=== PATIENT | male | born 1990 | race Two or more races ===

== ENCOUNTER 2023-03-24 13:58 | Outpatient (AMB) | payer OTHER, SELFPAY ==
--- NOTE | 2023-03-24 14:21 | MHC.PC.OV ---
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 Will order labs. Pt c/o right shoulder pain. He is already going to PT for this and needs a referral, will place. [facility] Medical History Kidney stones Lymphoma Social History Housing: House Patient Tobacco Use Status: Former Tobacco user e-Cigarette/Vaping Use: Never Used service: No Current occupational status: employed Cognitive needs: No Hearing needs: No Vision needs: Yes Questionnaire PHQ-9 Over the last 2 weeks, how often have you been bothered by any of the following problems? 1. Little interest or pleasure in doing things: not at all 2. Feeling down, depressed, or hopeless: not at all 3. Trouble falling or staying asleep, or sleeping too much: not at all 4. Feeling tired or having little energy: not at all 5. Poor appetite or overeating: not at all 6. Feeling bad about yourself - or that you are a failure or have let yourself or your family down: not at all 7. Trouble concentrating on things, such as reading the newspaper or watching television: not at all 8. Moving or speaking so slowly that other people could have noticed. Or the opposite - being so fidgety or restless that you have been moving around a lot more than usual: not at all 9. Thoughts that you would be better off or of hurting yourself in some way: not at all Total score: 0 Depression Screening Interpretation: Negative Depression Screening Done: Yes 87217 - PHQ-9 Billing: Yes Source: Developed by Drs. Tony Dave, Chicho Rosas and colleagues, with an educational annie from [employer]. Thrive Questionnaire Date Thrive assessed: 03/24/23 I am a: Patient What is your living situation today?: I have a steady place to live Within the past 12 months, did the food you bought not last and you didn't have the money to get more?: Never true Within the past 12 months, did you worry whether your food would run out before you got money to buy more?: Never true Do you have trouble paying for medicines?: No Do you have trouble getting transportation to medical appointments?: No Do you have trouble paying your heating and electricity bill?: No Do you have trouble taking care of your child, family member or friend?: No Do you have trouble with day-to-day activities such as bathing, preparing meals, shopping, managing finances, etc.?: No Are you currently unemployed and looking for a job?: No Are you interested in more education?: No AUDIT C Alcohol Use Questionnaire (AUDIT-C) 1. How often do you have a drink containing alcohol?: Never 3. How often do you have six or more drinks on one occasion?: Never Total Score: 0 Score Reviewed/Action Taken: No SARAH-7 AMB Questionnaire SARAH-7 Date SARAH - 7 assessed: 03/24/23 Feeling nervous, anxious, or on edge: 0 = Not at all Not being able to stop or control worryin = Not at all Worrying too much about different things: 0 = Not at all Trouble relaxin = Not at all Being so restless that it is hard to sit still: 0 = Not at all Becoming easily annoyed or irritable: 0 = Not at all Feeling afraid as if something awful might happen: 0 = Not at all Total SARAH-7 score (0-4 normal; 5-9 mild; 10-14 moderate; 15-21 severe): 0 Source: Developed by Rena Mary Kurt Kroenke and colleagues, with an educational annie from [employer]. SARAH-7 Assessment Billing SARAH-7 Assessment Tool: SARAH-7 Assessment 78214 Review of Systems Const Denies chills and Denies fever(s) Eyes Denies blurry vision ENT Denies vertigo, Denies dizziness and Denies sore throat Card Denies chest pain at rest, Denies chest pain with activity, Denies diaphoresis, Denies dyspnea and Denies dyspnea on exertion Resp Denies cough, Denies dyspnea, Denies dyspnea on exertion and Denies wheezing GI Denies abdominal pain, Denies melena, Denies hematochezia, Denies constipation, Denies diarrhea and Denies loose stools Denies hematuria Musc Denies numbness and Denies tingling Skin/Breast Denies lesions Neuro Denies vertigo, Denies dizziness, Denies numbness and Denies tingling Psych Denies anxiety, Denies depression, Denies homicidal ideation, Denies suicidal ideation and Denies other (substance abuse) Aller/Immun Denies wheezing Physical exam (Primary Care) Vital Signs: Last Vital Signs Pulse 60 03/24/23 14:22 BP 100/60 03/24/23 14:22 Pulse Ox 95 03/24/23 14:22 Oxygen Delivery Method Room Air 03/24/23 14:22 BMI result Body Mass Index 19.7 Tobacco/Smoking Status: Tobacco use Status Tobacco use date assessed 03/24/23 03/24/23 14:27 Patient Tobacco Use Status Former Tobacco user 03/24/23 14:27 e-Cigarette/Vaping Use Never Used 03/24/23 14:27 PHQ-9: PHQ-9 Score PHQ-9: Total score 0 03/24/23 15:24 Depression Screening Interpretation: Negative Thrive Assessment: Date of Thrive Assessment Date Thrive assessed 03/24/23 03/24/23 15:24 Const General: cooperative Nutritional Appearance: well nourished Orientation/consciousness: patient oriented x3 HENMT Head: Yes normal to inspection, Yes normocephalic and Yes atraumatic Ears: TM's normal bilaterally Eyes General: appearance normal, both eyes and all related structures Alignment and Position: alignment normal and position normal Neck Neck: Yes normal visual inspection and Yes no lymphadenopathy Thyroid: Thyroid normal Resp Effort & Inspection: normal respiratory effort Auscultation: clear to auscultation bilaterally Cardio Rate: regular rate Rhythm: regular rhythm Heart sounds: S1 normal heart sound present, S2 normal heart sound present and no murmurs GI Palpation (GI): Soft to palpation and nontender Auscultation: normal bowel sounds Male General Exam: Yes normal external exam Penis: normal penis Scrotum: scrotum normal, testes descended bilaterally and no inguinal hernias Testes: no testicular mass Skin Rashes: no rashes Neuro General: patient oriented x3, moves all extremities, no focal motor deficits and deep tendon reflexes 2+ bilaterally Romberg Test: Negative Extrem Other: right shoulder: - zaldivar, - neers, - jobes Psych Appearance: grossly normal Mental Status: mental status grossly normal Speech and movement: Normal speech and movement present Affect: normal affect Attitude: cooperative Thought process: Normal thought process present Thought content: Normal thought content present Insight: Good insight present (Psych) Judgement: Good judgement present (Psych) Assessment and Plan Assessment & Plan (1) Physical exam: Code(s): Z00.00 - Encounter for general adult medical examination without abnormal findings Plan: Labs ordered (2) Right shoulder pain: Code(s): M25.511 - Pain in right shoulder Plan: Referred to PT Plan The patient agreed to the use of a medical editor for this encounter. Scribed for SEVERO Esparza- by Nirmala Prado medical editor, on 03/24/2023 at 14:50 EST. Orders: Orders Comprehensive [place]. Panel Fast Today Z00.00 - Encounter for general adult medical examination without abnormal findings Complete Blood Count Auto Diff Today Z00.00 - Encounter for general adult medical examination without abnormal findings TSH reflex Free T4 Today Z00.00 - Encounter for general adult medical examination without abnormal findings UA CC w/rflx Micro + Cult Today Z00.00 - Encounter for general adult medical examination without abnormal findings Lipid Panel Today Z00.00 - Encounter for general adult medical examination without abnormal findings PT Evaluation and Treatment Today M25.511 - Pain in right shoulder Coding Level of Care Code New Pt Prev Care 18-39yr(18741 Diagnoses Physical exam Z00.00 Right shoulder pain M25.511 Additional Codes SARAH-7 Assessment Billing - SARAH-7 Assessment Tool: SARAH-7 Assessment 92234 ([id number])
[2023-03-24 14:22] VITALS: BP 100/60; PULSE 60; O2SAT 95; BMI 19.7
== END 2023-03-24 15:47 | disposition home or self-care (01) ==
PROVIDERS: PCP Nurse Practitioner Family; Visit Provider Nurse Practitioner Family
DX: Z00.00 Encounter for general adult medical examination without abnormal findings (principal); M25.511 Pain in right shoulder
CPT/HCPCS: 99385

== ENCOUNTER 2023-09-20 10:43 | Outpatient (REF) | payer OTHER, SELFPAY ==
[2023-09-20 13:28] LABS: MANUAL DIFF FLAG NO
[2023-09-20 13:34] LABS: Basophils Percent Auto 0.5 % (0-2); Eosinophils Absolute Auto 0.1 X10*3/uL (0.0-0.4); Eosinophils Percent Auto 2.3 % (0-4); Hematocrit 41.1 % (42.0-52.0); Hemoglobin 13.7 g/dl (14.0-18.0); Imm Gran Abs Auto 0.01 X10*3/uL (0.00-0.03); Imm Gran Pct Auto 0.3 % (0.0-0.4); Lymphocytes Absolute Auto 1.9 X10*3/uL (1.2-4.9); Lymphocytes Percent Auto 46.4 % (20-40); Mean Corpuscular HGB Conc 33.3 g/dl (31.0-36.0); Mean Corpuscular Hemoglobin 28.5 pg (27.0-33.0); Mean Corpuscular Volume 85.6 fL (80.0-98.0); Mean Platelet Volume 10.3 fL (9.4-12.4); Monocytes Absolute Auto 0.4 X10*3/uL (0.1-1.2); Neutrophils Absolute Auto 1.6 x10*3/uL (2.0-8.3); Neutrophils Percent Auto 40.5 % (45-73); Platelet Count 236 X10*3/uL (160-400); Red Cell Distribution Width 11.9 % (11.0-16.0)
[2023-09-20 13:39] LABS: Appearance Urine Turbid; Color Urine Yellow; Glucose Urine UA Negative (Negative); Leukocyte Esterase Urine Negative (Negative); Nitrite Urine Negative (Negative); PH 5.5 (5.0-9.0); Specific Gravity - Urine 1.025 (1.005-1.025); Urine Blood Negative (Negative); Urine Ketones Negative (Negative); Urine Protein Negative (Neg-Trace)
[2023-09-20 14:34] LABS: Alanine Aminotransferase 30 U/L (0-40); Albumin Level 4.5 g/dL (3.5-5.0); Alkaline Phosphatase 48 U/L (39-117); Anion Gap 15 (12-20); Aspartate Amino Transferase 27 U/L (5-37); Bilirubin Total 0.4 mg/dL (0.0-1.0); Blood Urea Nitrogen 33 mg/dL (9-16); Calcium 9.8 mg/dL (8.4-10.2); Carbon Dioxide 24 mmol/L (22-29); Chloride 106 mmol/L (96-108); Cholesterol 225 mg/dL (<200); Estimated Glomerular Filt Rate 59; Glucose Fasting 90 mg/dL (60-99); HDL Cholesterol 65 mg/dL (>40); LDL Cholesterol Calculated 147 mg/dL (<100); Potassium 3.7 mmol/L (3.3-5.1); Sodium 141 mmol/L (135-145); Total Protein 7.8 g/dL (6.5-8.0); Triglycerides 68 mg/dL (<150)
[2023-09-20 14:49] LABS: TSH reflex Free T4 3.56 uIU/mL (0.32-4.0)
== END 2023-09-20 10:44 | disposition home or self-care (01) ==
LOC: HO.HMGCLDS 10:43
PROVIDERS: PCP Nurse Practitioner Family; Visit Provider Nurse Practitioner Family
DX: Z00.00 Encounter for general adult medical examination without abnormal findings (principal)
CPT/HCPCS: 36415; 80053; 80061; 81003; 84443; 85025

== ENCOUNTER 2023-09-22 14:32 | Outpatient (AMB) | payer OTHER, SELFPAY ==
--- NOTE | 2023-09-22 14:46 | MHC.PC.OV ---
Vital Signs 09/22/23 14:48 Height 5 ft 10 in Weight 143 lb BMI 20.5 BP 110/68 Blood Pressure Location Rt brachial Position Sitting Pulse 88 Pulse Source Pulse Oximeter Pulse Oximetry (%) 98 Oxygen Delivery Method Room Air Intake Visit Reasons: 6 Month follow up with labs Intake Note: Patient here to follow up on labs. Allergies No Known Allergies Allergy (Verified 09/22/23 14:49) Medication List - Last Reconciled 09/22/23 by SHARON Wilson No Known Home Meds Tobacco use date assessed: 09/22/23 Dental Screening Dental Screen Date: 09/22/23 Did you have a dental visit in the last 12 months?: Yes Did you have a dental problem in the last 6 months where you did not have access to dental care?: No Was dental information given to patient?: Patient has dentist HPI 6 Month follow up with labs HPI Details Pt had anemia noted on last labs. Will repeat labs. Leukocytosis also noted. Pt reports having a cold for the last 2 weeks. Will repeat labs. Pt was diagnosed with hodgkin's lymphoma at age 16-17. Pt reports having a bone marrow transplant, chemo, and radiation. Will order further labs and refer to hematology/oncology. Dyslipidemia: Will repeat labs. Denies fever, chills, and dizziness. [facility] Medical History Kidney stones Lymphoma Social History Housing: House Patient Tobacco Use Status: Never used Tobacco e-Cigarette/Vaping Use: Never Used service: No Current occupational status: employed Cognitive needs: No Hearing needs: No Vision needs: Yes Questionnaire PHQ-9 Over the last 2 weeks, how often have you been bothered by any of the following problems? 1. Little interest or pleasure in doing things: not at all 2. Feeling down, depressed, or hopeless: not at all 3. Trouble falling or staying asleep, or sleeping too much: not at all 4. Feeling tired or having little energy: not at all 5. Poor appetite or overeating: several days 6. Feeling bad about yourself - or that you are a failure or have let yourself or your family down: not at all 7. Trouble concentrating on things, such as reading the newspaper or watching television: not at all 8. Moving or speaking so slowly that other people could have noticed. Or the opposite - being so fidgety or restless that you have been moving around a lot more than usual: not at all 9. Thoughts that you would be better off or of hurting yourself in some way: not at all Total score: 1 Depression Screening Interpretation: Negative Depression Screening Done: Yes 95067 - PHQ-9 Billing: Yes Source: Developed by Drs. Tony Dave, Rena Guevara, Chicho Scherer and colleagues, with an educational annie from [employer]. Thrive Questionnaire Date Thrive assessed: 09/22/23 I am a: Patient What is your living situation today?: I have a steady place to live Within the past 12 months, did the food you bought not last and you didn't have the money to get more?: Never true Within the past 12 months, did you worry whether your food would run out before you got money to buy more?: Never true Do you have trouble paying for medicines?: No Do you have trouble getting transportation to medical appointments?: No Do you have trouble paying your heating and electricity bill?: No Do you have trouble taking care of your child, family member or friend?: No Do you have trouble with day-to-day activities such as bathing, preparing meals, shopping, managing finances, etc.?: No Are you currently unemployed and looking for a job?: No Are you interested in more education?: No Currently or been in a relationship where the following occur: I choose not to answer this question THRIVE Score: 0 AUDIT C Alcohol Use Questionnaire (AUDIT-C) 1. How often do you have a drink containing alcohol?: Monthly or less 2. How many drinks containing alcohol do you have on a typical day when you are drinking?: 1 or 2 3. How often do you have six or more drinks on one occasion?: Never Total Score: 1 Score Reviewed/Action Taken: No SARAH-7 AMB Questionnaire SARAH-7 Date SARAH - 7 assessed: 09/22/23 Feeling nervous, anxious, or on edge: 0 = Not at all Not being able to stop or control worryin = Not at all Worrying too much about different things: 1 = Several days Trouble relaxin = Not at all Being so restless that it is hard to sit still: 0 = Not at all Becoming easily annoyed or irritable: 0 = Not at all Feeling afraid as if something awful might happen: 0 = Not at all Total SARAH-7 score (0-4 normal; 5-9 mild; 10-14 moderate; 15-21 severe): 1 Source: Developed by Drs. Tony Dave, Rena Guevara, Chicho Scherer and colleagues, with an educational annie from [employer]. SARAH-7 Assessment Billing SARAH-7 Assessment Tool: SARAH-7 Assessment 75612 Review of Systems Const Reports as per HPI Physical exam (Primary Care) Vital Signs: Last Vital Signs Pulse 88 09/22/23 14:48 BP 110/68 09/22/23 14:48 Pulse Ox 98 09/22/23 14:48 Oxygen Delivery Method Room Air 09/22/23 14:48 BMI result Body Mass Index 20.5 Tobacco/Smoking Status: Tobacco use Status Tobacco use date assessed 09/22/23 09/22/23 14:53 Patient Tobacco Use Status Never used Tobacco 09/22/23 14:53 e-Cigarette/Vaping Use Never Used 09/22/23 14:48 PHQ-9: PHQ-9 Score PHQ-9: Total score 1 09/22/23 15:40 Depression Screening Interpretation: Negative Thrive Assessment: Date of Thrive Assessment Date Thrive assessed 09/22/23 09/22/23 15:40 Currently or been in a relationship where the following occur: I choose not to answer this question Const General: cooperative Orientation/consciousness: patient oriented x3 Neck Neck: Yes no lymphadenopathy Resp Effort & Inspection: normal respiratory effort Auscultation: clear to auscultation bilaterally Cardio Rate: regular rate Rhythm: regular rhythm Heart sounds: S1 normal heart sound present and S2 normal heart sound present Neuro General: patient oriented x3 Psych Appearance: grossly normal Mental Status: mental status grossly normal Speech and movement: Normal speech and movement present Affect: normal affect Attitude: cooperative Thought process: Normal thought process present Thought content: Normal thought content present Insight: Good insight present (Psych) Judgement: Good judgement present (Psych) Assessment and Plan Assessment & Plan (1) Anemia: Code(s): D64.9 - Anemia, unspecified Plan: Labs ordered (2) Lymphoma: Code(s): C85.90 - Non-Hodgkin lymphoma, unspecified, unspecified site Plan: Labs ordered, referred to hematology/oncology (3) Dyslipidemia: Code(s): E78.5 - Hyperlipidemia, unspecified Plan: Labs ordered Plan The patient agreed to the use of a medical biller/coder for this encounter. Scribed for Lang Aguilera [facility] by Nirmala Prado medical biller/coder, on 09/22/2023 at 15:25 EST. Orders: Orders Ferritin Today C85.90 - Non-Hodgkin lymphoma, unspecified, unspecified site, D64.9 - Anemia, unspecified, D72.829 - Elevated white blood cell count, unspecified Immunofixation Pnl, Serum Today C85.90 - Non-Hodgkin lymphoma, unspecified, unspecified site, D64.9 - Anemia, unspecified, D72.829 - Elevated white blood cell count, unspecified Protein Electrophoresis, Serum Today C85.90 - Non-Hodgkin lymphoma, unspecified, unspecified site, D64.9 - Anemia, unspecified, D72.829 - Elevated white blood cell count, unspecified Complete Blood Count Auto Diff Today C85.90 - Non-Hodgkin lymphoma, unspecified, unspecified site, D64.9 - Anemia, unspecified, D72.829 - Elevated white blood cell count, unspecified IRON PROFILE Today C85.90 - Non-Hodgkin lymphoma, unspecified, unspecified site, D64.9 - Anemia, unspecified, D72.829 - Elevated white blood cell count, unspecified Vitamin B12 and Folate Today C85.90 - Non-Hodgkin lymphoma, unspecified, unspecified site, D64.9 - Anemia, unspecified, D72.829 - Elevated white blood cell count, unspecified Hemoglobin Electrophoresis Today C85.90 - Non-Hodgkin lymphoma, unspecified, unspecified site, D64.9 - Anemia, unspecified, D72.829 - Elevated white blood cell count, unspecified Lipid Panel 2 Months E78.5 - Hyperlipidemia, unspecified Referrals Hematology & Oncology Referral C85.90 - Non-Hodgkin lymphoma, unspecified, unspecified site Coding Level of Care Code Est Pt Level 3 (27310) Diagnoses Anemia D64.9 Lymphoma C85.90 Dyslipidemia E78.5 Additional Codes SARAH-7 Assessment Billing - SARAH-7 Assessment Tool: SARAH-7 Assessment 62288 ([id number])
[2023-09-22 14:48] VITALS: BP 110/68; PULSE 88; O2SAT 98; BMI 20.5
== END 2023-09-22 15:40 | disposition home or self-care (01) ==
PROVIDERS: PCP Nurse Practitioner Family; Visit Provider Nurse Practitioner Family
DX: D64.9 Anemia, unspecified (principal); C85.90 Non-Hodgkin lymphoma, unspecified, unspecified site; E78.5 Hyperlipidemia, unspecified
CPT/HCPCS: 99213

== ENCOUNTER 2023-10-06 11:02 | Outpatient (REF) | payer OTHER, SELFPAY ==
[2023-10-06 13:38] LABS: Basophils Percent Auto 0.7 % (0-2); Eosinophils Absolute Auto 0.1 X10*3/uL (0.0-0.4); Hematocrit 42.2 % (42.0-52.0); Hemoglobin 13.8 g/dl (14.0-18.0); Imm Gran Abs Auto 0.01 X10*3/uL (0.00-0.03); Imm Gran Pct Auto 0.2 % (0.0-0.4); Lymphocytes Absolute Auto 1.7 X10*3/uL (1.2-4.9); MANUAL DIFF FLAG NO; Mean Corpuscular HGB Conc 32.7 g/dl (31.0-36.0); Mean Corpuscular Hemoglobin 28.8 pg (27.0-33.0); Mean Corpuscular Volume 87.9 fL (80.0-98.0); Mean Platelet Volume 10.3 fL (9.4-12.4); Monocytes Absolute Auto 0.3 X10*3/uL (0.1-1.2); Monocytes Percent Auto 8.2 % (2-11); Neutrophils Absolute Auto 1.8 x10*3/uL (2.0-8.3); Neutrophils Percent Auto 45.9 % (45-73); Platelet Count 192 X10*3/uL (160-400); Red Cell Distribution Width 12.2 % (11.0-16.0)
[2023-10-06 13:52] LABS: Iron 92 mcg/dL (45-160); Percent Iron Saturation 34 % (15-50); Total Iron Binding Capacity 270 mcg/dL (228-428); Unsaturated Iron Binding 178 ug/dL
[2023-10-06 14:10] LABS: Ferritin 254 ng/mL (20-250)
[2023-10-06 14:18] LABS: Folate 8.4 ng/mL (> or = 4.0); Vitamin B12 899 pg/mL (200-900)
[2023-10-07 22:58] LABS: Prot Elec - Albumin 4.7 g/dL (3.8-4.8); Prot Elec - Alpha1 0.2 g/dL (0.2-0.3); Prot Elec - Alpha2 0.5 g/dL (0.5-0.9); Prot Elec - Beta 1 0.4 g/dL (0.4-0.6); Prot Elec - Beta 2 0.4 g/dL (0.2-0.5); Prot Elec - Gamma 1.2 g/dL (0.8-1.7); Prot Elec - Total Protein 7.3 g/dL (6.1-8.1)
[2023-10-08 18:13] LABS: IgA 205 mg/dL (47-310); IgG 1337 mg/dL (600-1640); IgM 63 mg/dL (50-300)
[2023-10-09 06:48] LABS: Hematocrit 41.7 % (38.5-50.0); Hemoglobin 13.9 g/dL (13.2-17.1); MCH 29.2 pg (27.0-33.0); MCV 87.6 fL (80.0-100.0); RBC 4.76 Million/uL (4.20-5.80)
== END 2023-10-06 11:03 | disposition home or self-care (01) ==
LOC: HO.HMGCLDS 11:02
PROVIDERS: PCP Nurse Practitioner Family; Visit Provider Nurse Practitioner Family
DX: D64.9 Anemia, unspecified (principal); D72.829 Elevated white blood cell count, unspecified; C85.90 Non-Hodgkin lymphoma, unspecified, unspecified site
CPT/HCPCS: 36415; 82607; 82728; 82746; 82784; 83020; 83540; 84165; 85014; 85018; 85025; 85041; 86334

== ENCOUNTER → 2023-10-17 10:25 | Outpatient (BNV) | payer OTHER, SELFPAY | PROVIDERS: PCP Nurse Practitioner Family; Referring Provider Nurse Practitioner Family; Visit Provider Internal Medicine | DX: Z85.71 Personal history of Hodgkin lymphoma (principal) | CPT/HCPCS: 99204 ==

== ENCOUNTER 2024-06-12 07:25 | Emergency (ER) | payer OTHER, SELFPAY ==
--- NOTE | ~2024-06-12 | CT_ITS ---
CLINICAL HISTORY: lower abd discomfort issues voiding CT abdomen and pelvis without IV contrast. Comparison: None Findings: Lung bases clear. Heart size normal. Liver, gallbladder, biliary tree, pancreas, spleen and adrenals are unremarkable. Small bilateral nonobstructing right renal stones with 5 x 2 mm upper pole stone punctate mid and lower pole stones. Punctate upper, mid and lower pole stones left kidney. Mild fullness of the left ureter compared to the right although no erickson hydronephrosis. A 7 x 2 mm stone in the bladder near the left ureterovesicular junction suggest possible recently passed stone. Bladder otherwise intact. Moderately enlarged prostate. Normal caliber aorta and IVC. No enlarged mesenteric or retroperitoneal lymph nodes. No apparent bowel obstruction. Few fluid distended nondilated small bowel loops. Moderate stool burden in the right hemicolon. No diverticulitis. Prominent 9 mm appendix without infiltration of the periappendiceal fat or cecal wall thickening. Bones intact. Regional soft tissues unremarkable. Impression: 7 x 2 mm stone in the urinary bladder near the left ureterovesicular junction suggesting possible recently passed stone. Correlation for left flank pain. Multiple additional nonobstructing intrarenal stones as noted. Prominent appendix although without appreciable inflammatory change. If symptoms localized to the right lower quadrant, consider follow-up CT with oral and IV contrast. This document has been electronically signed by: Adeel Butt MD on 06/12/2024 09:25:35
--- NOTE | ~2024-06-12 | CT_ITS ---
CLINICAL HISTORY: lower abd disocomfort ?enlarged appendix on dry ct CT abdomen pelvis with IV contrast. Comparison: Earlier noncontrast CT same day Findings: Prominent appendix again identified, measuring 10 mm currently. Mild fluid distention. No wall thickening or appreciable infiltration of the periappendiceal fat. Similar appearance of few fluid distended distal small bowel, nondilated. No transition zone or features of mechanical obstruction. Moderate stool burden in the right hemicolon. Significant further distention of the urinary bladder with migration of the previously noted stone to the more posterior dependent bladder. Changes may be physiologic although correlation for retention. Stable appearance of tiny intrarenal stones. Mild left hydroureteronephrosis more conspicuous than on prior with slight wall enhancement of the left ureter compared to the right. This supports recent passage of left ureteral stone. Correlation for left flank pain. 14 mm upper pole cyst left kidney and 15 mm midpole cyst left kidney much better delineated than on prior noncontrast CT. Additional much smaller hypodensity in the upper pole right kidney, mid and lower pole left kidney suggesting Bosniak 2, too small to characterize cysts. No follow-up required. Liver, portal vein, hepatic veins, IVC, gallbladder, biliary tree, pancreas, spleen, aorta all stable to prior. Impression: More conspicuous left hydroureteronephrosis suggesting recently passed stone as detailed. Correlation for left flank pain. Similar appearance of nonobstructing renal stones. Small renal cysts much more conspicuous on contrasted exam. Prominent appendix without additional features of acute appendicitis. If right lower quadrant pain, perhaps additional short-term follow-up CT would be helpful. This could be tailored to the right lower quadrant. Significantly distended urinary bladder and correlation for retention. This document has been electronically signed by: Adeel Butt MD on 06/12/2024 12:19:23
[2024-06-12 07:31] VITALS: BP 119/61; PULSE 94; RESP 18; TEMP 36.9; O2SAT 99; BMI 21.7
[2024-06-12 07:52] LABS: MANUAL DIFF FLAG NO
[2024-06-12 07:55] LABS: Appearance Urine Cloudy; Color Urine Yellow; Glucose Urine UA 100 mg/dL (Negative); Leukocyte Esterase Urine Negative (Negative); Nitrite Urine Negative (Negative); PH 5.5 (5.0-9.0); Specific Gravity - Urine 1.025 (1.005-1.025); UMIC TRIGGER UACC YES; Urine Blood Large (3+) (Negative); Urine Ketones Negative (Negative); Urine Protein 30 (1+) mg/dL (Neg-Trace)
--- NOTE | 2024-06-12 07:55 | ED_ITS ---
HPI - General Adult General Chief complaint: Abdominal Pain Stated complaint: bladder issues Time Seen by Provider: 06/12/24 07:54 Source: patient Mode of arrival: ambulatory Limitations: no limitations History of Present Illness ED Provider: LILIYA Clemens HPI narrative: This is a 33-year-old male past medical history significant for dyslipidemia, lymphoma, anemia presenting to the emergency department with decreased urinary output,, dysuria suprapubic abdominal discomfort, fatigue, malaise ongoing for the past few days. He reports he has a history of kidney stones and this feels like the last time he had a kidney stone. He reports he took Tylenol for the discomfort with little to no improvement last took it a few hours ago. He denies concerns for STDs or STIs. Denies fevers, chills, nausea, vomiting, headache, vision changes, chest pain, shortness of breath, recent sick contacts Related Data Previous Rx's ?Medication ?Instructions ?Recorded cefdinir 300 mg capsule 300 mg PO BID 3 days #6 caps 06/12/24 ketorolac 10 mg tablet 10 mg PO TID PRN pain 5 days #15 06/12/24 tabs prednisone 20 mg tablet 20 mg PO DAILY 5 days #5 tabs 06/12/24 tamsulosin 0.4 mg capsule (Flomax) 0.4 mg PO DAILY 2 weeks #14 caps 06/12/24 Allergies Allergy/AdvReac Type Severity Reaction Status Date / Time No Known Allergies Allergy Verified 06/12/24 07:35 Review of Systems 2 Review of Systems: Yes all other systems are reviewed and are negative PMFSH Past Medical History Attestation statement: The following information was validated with the patient. Source: old records reviewed and nursing notes reviewed Medical History Kidney stones Lymphoma Social History Social History Household Members: Family Housing: House Patient Tobacco Use Status: Never used Tobacco e-Cigarette/Vaping Use: Never Used Substance Use Type: Marijuana Advance Directives: No Advance Directives Information Provided: No Do you have a plan to hurt others: No Plan Current occupational status: employed Cognitive needs: No Hearing needs: No Vision needs: Yes Physical Exam ED Vital Signs: Vital Signs - 24 hr 06/12/24 07:31 Temperature 98.5 F Pulse Rate 94 Respiratory Rate 18 Blood Pressure 119/61 Pulse Oximetry 99 Oxygen Delivery Method Room Air BMI result Body Mass Index 21.7 vss Appearance: Alert.? Oriented X3.? No acute distress.? Head: Normocephalic, atraumatic, no step-offs or deformities Eyes: Pupils equal, round and reactive to light.? CVS: Normal heart rate and rhythm.? Pulses normal.? Respiratory: No respiratory distress.? Breath sounds normal.? Abdomen: Soft and nontender.?Negative rosving or mcburneys Skin: Skin warm and dry.? Normal skin color.? Normal skin turgor.? Extremities: No lower extremity edema.? No calf ttp. 5/5 strength to bilateral upper and lower extremities Back: No midline tenderness, no C-spine tenderness, full range of motion, no CVA tenderness bilaterally Neuro: Oriented X 3.? No motor deficit.? No sensory deficit. CN 2-12 intact Course Reevaluation(s) Reevaluation #1: CBC with no acute findings needing intervention. Chemistry with mild elevation in BUN and creatinine this is likely secondary to stone, patient receiving IV fluids will receive a total of 2 L prior to discharge. No other acute electrolyte abnormalities noted patient also tolerating p.o.. Urine showing blood however no bacteria. On re-evaluation patient states his pain is almost gone. It is likely he passed a stone. Dry CT scan with a 7 x 2 mm stone in the urinary bladder near the left UVJ suggesting possible recently passed stone patient has no flank pain at this time he reports pain is much improved. Likely passed stone. Patient's appendix is noted to be prominent there is no point tenderness to the right lower quadrant negative McBurney's, Rovsing sign on exam recommended CT with contrast which was ordered. Time: 10:00 Reevaluation #2: CT abdomen pelvis repeat with contrast again showing the stone, and left hydroureter nephrosis suggesting recently passed stone. Prominent appendix without additional features of acute appendicitis. Again no right lower quadrant tenderness on palpation or Rovsing sign. Discuss this with surgery likely incidental finding will have him follow up outpatient as needed and will give him strict return precautions. Discussed w/ Urology Dr. Wu, no indication to keep in patient. Recomends pain meds, flomax and outpatient follow up. Patient will receive an additional L of IV fluids. Will discharge patient home with PCP, GI and surgical referral. Patient verbalizes understanding of this. I did outline all return precautions on patient's discharge. Time: 12:36 Medications Administered Generic Name Dose Route Start Last Admin Trade Name Freq PRN Reason Stop Dose Admin Sodium Chloride 1,000 mls @ 999 mls/hr 06/12/24 12:45 06/12/24 12:55 Ns IV 06/12/24 13:45 999 mls/hr .Q1H1M DESI Administration Discontinued Medications Generic Name Dose Route Start Last Admin Trade Name Freq PRN Reason Stop Dose Admin Sodium Chloride 1,000 mls @ 999 mls/hr 06/12/24 10:45 06/12/24 12:21 Ns IV 06/12/24 11:45 Infused .Q1H1M DESI Infusion Iohexol 100 ml 06/12/24 10:59 06/12/24 11:00 Iohexol 350 Mg/Ml 100 Ml Infus..Btl IV 06/12/24 11:00 85 ml ONCE ONE Administration Ketorolac Tromethamine 30 mg 06/12/24 10:33 06/12/24 10:47 Ketorolac Tromethamine 15 Mg/Ml Vial IM 06/12/24 10:34 30 mg ONCE ONE Administration Prednisone 20 mg 06/12/24 10:33 06/12/24 10:47 Prednisone 20 Mg Tablet PO 06/12/24 10:34 20 mg ONCE ONE Administration Tamsulosin HCl 0.4 mg 06/12/24 10:33 06/12/24 10:47 Tamsulosin Hcl 0.4 Mg Capsule PO 06/12/24 10:34 0.4 mg ONCE ONE Administration Medical Decision Making Medical Decision Making [facility] Narrative: 33-year-old male presents with difficulty urinating reports he is having decreased urinary output and some lower abdominal discomfort. History of kidney stones. Physical exam mild suprapubic discomfort. No CVA tenderness. Patient well- appearing vital signs stable. History and physical exam concerning for UTI versus cystitis versus kidney stone. Unlikely pyelonephritis. No concerns for STDs or STIs her patient. Will rule out metabolic derangements. Plan labs, imaging Differential Diagnosis Differential Diagnoses: The differential diagnosis associated with the presentation includes (History and physical exam concerning for UTI versus cystitis versus kidney stone. Unlikely pyelonephritis. No concerns for STDs or STIs her patient. Will rule out metabolic derangements.) Admission/Observation Consideration of admission/observation: Escalation of care including admission/observation considered Lab Data MDM Lab Attestation statement: I reviewed the patient's lab results. 06/12/24 07:48 06/12/24 07:48 Labs: Lab Results 06/12/24 Range/Units 07:48 WBC 7.7 (4.8-10.8) X10*3/uL RBC 4.54 L (4.60-5.80) X10*6/uL Hgb 13.2 L (14.0-18.0) g/dl Hct 38.8 L (42.0-52.0) % MCV 85.5 (80.0-98.0) fL MCH 29.1 (27.0-33.0) pg MCHC 34.0 (31.0-36.0) g/dl RDW 11.5 (11.0-16.0) % Plt Count 185 (160-400) X10*3/uL MPV 9.7 (9.4-12.4) fL Immature Gran % (Auto) 0.1 (0.0-0.4) % Neut % (Auto) 76.6 H (45-73) % Lymph % (Auto) 13.5 L (20-40) % Banks % (Auto) 8.5 (2-11) % Eos % (Auto) 1.0 (0-4) % Baso % (Auto) 0.3 (0-2) % Lymph # (Auto) 1.0 L (1.2-4.9) X10*3/uL Banks # (Auto) 0.7 (0.1-1.2) X10*3/uL Eos # (Auto) 0.1 (0.0-0.4) X10*3/uL Baso # (Auto) 0.0 (0.0-0.2) X10*3/uL Abs Immat Gran (auto) 0.01 (0.00-0.03) X10*3/uL Absolute Neuts (auto) 5.9 (2.0-8.3) x10*3/uL Absolute Nucleated RBC 0.000 (0.0-0.012) X10*3/uL Nucleated RBC % (auto) 0.0 (0.0-0.2) /100WBC Sodium 137 (135-145) mmol/L Potassium 3.6 (3.3-5.1) mmol/L Chloride 107 (96-108) mmol/L Carbon Dioxide 23 (22-29) mmol/L Anion Gap 11 L (12-20) BUN 40 H (9-16) mg/dL Creatinine 1.22 (0.5-1.4) mg/dL Estim Creat Clear Calc 84.2 Estimated GFR > 60 Random Glucose 131 H (60-115) mg/dL Calcium 9.2 D (8.4-10.2) mg/dL Total Bilirubin 0.3 (0.0-1.0) mg/dL Direct Bilirubin 0.1 (0.0-0.5) mg/dL AST 36 (5-37) U/L ALT 36 (0-40) U/L Alkaline Phosphatase 58 (39-117) U/L Total Protein 7.5 (6.5-8.0) g/dL Albumin 4.3 (3.5-5.0) g/dL Lipase 31 (8-78) U/L Urine Color Yellow Urine Appearance Cloudy Urine pH 5.5 (5.0-9.0) Ur Specific [place] 1.025 (1.005-1.025) Urine Protein 30 (1+) H (Neg-Trace) mg/dL Urine Glucose (UA) 100 H (Negative) mg/dL Urine Ketones Negative (Negative) mg/dL Urine Blood Large (3+) H (Negative) Urine Nitrite Negative (Negative) Ur Leukocyte Esterase Negative (Negative) Urine RBC >20 H (0-2) /HPF Urine WBC 0-5 (0-5) /HPF Ur Squamous Epith Cells 6-10 (0-2) /HPF Other Crystals Present Urine Bacteria None Seen (None Seen) Hyaline Casts 3-5 (0-2) /LPF Independent Interpretation I performed an independent interpretation of an: CT Scan Radiology Impression Discussion of test interpretation with radiology: I have reviewed the radiologist's reading. Prescription Management I considered prescription management with: Pain Medication Chronic Conditions Patient?s care impacted by: Other Critical Care Time Critical Care Time Critical Care Time: Yes Total Critical Care Time: 35 Attestation: I attest to this time spent taking care of the patient, obtaining history, physical, reviewing labs, imaging, speaking to my attending, speaking to specialist. Discharge Plan Discharge Clinical Impression: Calculus of kidney, Abdominal pain, Bladder calculi Patient Disposition: Home, Self-Care Instructions: Kidney Stones (ED), Abdominal Pain (ED), Bladder Stones (ED) Additional Instructions: Take your medications as prescribed. If you were prescribed antibiotics today, it is important that you take your medication to their entirety, do not skip any doses, do not finish them early. Follow-up with your primary care provider this week. Return to the emergency department with new or worsening symptoms. Such as fevers, chills, chest pain, shortness of breath, nausea, vomiting, dizziness, headache, vision changes, lethargy In case of emergency call 911 It appears as though he passed a large stone 7 x 2 mm in size it is currently in your bladder it is likely he will pass this on her own. I discussed this with the urologist that recommends 3 days of antibiotics they have been sent to your pharmacy. On your imaging it is also noted that your appendix is enlarged however you are not having point tenderness to the right lower quadrant which makes acute appendicitis very unlikely. Please follow-up outpatient with surgery. Or if you experience any new or worsening symptoms particularly in the epigastric region or right lower quadrant it is important that you seek medical attention immediately. Please also return with any new nausea, vomiting, fevers or chills or any new or worsening symptoms Impression: CT abdomen pelvis without contrast 7 x 2 mm stone in the urinary bladder near the left ureterovesicular junction suggesting possible recently passed stone. Correlation for left flank pain. Multiple additional nonobstructing intrarenal stones as noted. Prominent appendix although without appreciable inflammatory change. If symptoms localized to the right lower quadrant, consider follow-up CT with oral and IV contrast. Impression: CT abdomen and pelvis with contrast More conspicuous left hydroureteronephrosis suggesting recently passed stone as detailed. Correlation for left flank pain. Similar appearance of nonobstructing renal stones. Small renal cysts much more conspicuous on contrasted exam. Prominent appendix without additional features of acute appendicitis. If right lower quadrant pain, perhaps additional short-term follow-up CT would be helpful. This could be tailored to the right lower quadrant. Significantly distended urinary bladder and correlation for retention. Prescriptions: New cefdinir 300 mg capsule 300 mg PO BID 3 Days Qty: 6 0RF prednisone 20 mg tablet 20 mg PO DAILY 5 Days Qty: 5 0RF tamsulosin [Flomax] 0.4 mg capsule 0.4 mg PO DAILY 14 Days Qty: 14 0RF ketorolac 10 mg tablet 10 mg PO TID PRN (Reason: pain) 5 Days Qty: 15 0RF Rx Instructions: Tolerated IM or IV in department Referrals: [facility] General Surgeons [Provider Group] - 3 days (for enlarged appendix ) [facility] Urology Services [Provider Group] - 3 days Lang Aguilera FNP-GREGORIO [Primary Care Provider] - 2 days Stand Alone Forms: Work/School Release Print Language: Kazakh
[2024-06-12 07:58] LABS: Basophils Percent Auto 0.3 % (0-2); Eosinophils Absolute Auto 0.1 X10*3/uL (0.0-0.4); Hematocrit 38.8 % (42.0-52.0); Hemoglobin 13.2 g/dl (14.0-18.0); Imm Gran Abs Auto 0.01 X10*3/uL (0.00-0.03); Imm Gran Pct Auto 0.1 % (0.0-0.4); Lymphocytes Percent Auto 13.5 % (20-40); Mean Corpuscular Hemoglobin 29.1 pg (27.0-33.0); Mean Corpuscular Volume 85.5 fL (80.0-98.0); Mean Platelet Volume 9.7 fL (9.4-12.4); Monocytes Absolute Auto 0.7 X10*3/uL (0.1-1.2); Monocytes Percent Auto 8.5 % (2-11); Neutrophils Absolute Auto 5.9 x10*3/uL (2.0-8.3); Neutrophils Percent Auto 76.6 % (45-73); Platelet Count 185 X10*3/uL (160-400); Red Blood Count 4.54 X10*6/uL (4.60-5.80); Red Cell Distribution Width 11.5 % (11.0-16.0); White Blood Count 7.7 X10*3/uL (4.8-10.8)
[2024-06-12 08:04] LABS: Bacteria Urine None Seen (None Seen); Other Crystals Urine Present; RBC Urine >20 /HPF (0-2); WBC Urine 0-5 /HPF (0-5)
[2024-06-12 08:07] LABS: Alanine Aminotransferase 36 U/L (0-40); Albumin Level 4.3 g/dL (3.5-5.0); Alkaline Phosphatase 58 U/L (39-117); Anion Gap 11 (12-20); Aspartate Amino Transferase 36 U/L (5-37); Bilirubin Direct 0.1 mg/dL (0.0-0.5); Bilirubin Total 0.3 mg/dL (0.0-1.0); Blood Urea Nitrogen 40 mg/dL (9-16); Calcium 9.2 mg/dL (8.4-10.2); Carbon Dioxide 23 mmol/L (22-29); Chloride 107 mmol/L (96-108); Creatinine Clr Calc Pharmacy 84.2; Estimated Glomerular Filt Rate > 60; Glucose Random 131 mg/dL (60-115); Lipase 31 U/L (8-78); Potassium 3.6 mmol/L (3.3-5.1); Sodium 137 mmol/L (135-145); Total Protein 7.5 g/dL (6.5-8.0)
[2024-06-12] MEDS: predniSONE 20 MG TABLET PO (10:47)
[2024-06-12] MEDS: Ketorolac Tromethamine 15 MG/ML VIAL 30 MG IM (10:47)
[2024-06-12] MEDS: Tamsulosin HCL 0.4 MG CAPSULE PO (10:47)
[2024-06-12] MEDS: 0.9 % Sodium Chloride 1,000 ML 999 ML IV ×2 (10:48→12:55)
--- NOTE | 2024-06-12 10:50 | PC.NURSE ---
per Chely LOVELL, give ketorolac via IVP
[2024-06-12] MEDS: iohexoL 350 MG/ML 100 ML INFUS..BTL IV (11:00)
[2024-06-12 13:59] VITALS: BP 119/61; PULSE 94; RESP 18; TEMP 36.9; O2SAT 99
== END 2024-06-12 14:00 | disposition home or self-care (01) ==
PROVIDERS: Emergency Provider Emergency Medicine; PCP Nurse Practitioner Family
DX: N20.0 Calculus of kidney (principal); N21.0 Calculus in bladder; R10.30 Lower abdominal pain, unspecified; Z87.442 Personal history of urinary calculi; E78.5 Hyperlipidemia, unspecified; C85.90 Non-Hodgkin lymphoma, unspecified, unspecified site
CPT/HCPCS: 36415; 74176; 74177; 80048; 80076; 81001; 83690; 85025; 96361; 96374; 99283; 99284; J1885; Q9967

== ENCOUNTER → 2024-06-12 07:54 | Outpatient (BNV) | payer OTHER, SELFPAY | PROVIDERS: Emergency Provider Emergency Medicine; PCP Nurse Practitioner Family; Visit Provider Radiology Diagnostic Radiology | DX: N13.4 Hydroureter (principal); N28.1 Cyst of kidney, acquired | CPT/HCPCS: 74176; 74177 ==

== ENCOUNTER 2024-07-06 14:11 | Outpatient (AMB) | payer OTHER, SELFPAY ==
--- NOTE | 2024-07-06 14:37 | A.OFFVIS_ITS ---
Intake Visit Reasons: bilateral nephrolithiasis/Enlarged Prostate Intake Note: New Patient presents for initial visit for kidney stones Urology Medications: none Blood Thinner: none Space Buyer Required: No Accompanied by: Self / Same As Patient Allergies No Known Allergies Allergy (Verified 07/06/24 14:53) HPI Comments Details: Gilmar is a very pleasant male. He is a patient of Dr. Sheehan. He is seen for the following urologic conditions - nephrolithiasis Nephrolithiasis Recent ER visit for passage left-sided stone Pain well-controlled now Does report prior attack Family history No prior intervention Imaging - CT 06/12 mild hydro uretero nephrosis left side indicative of stone passage Encourage fluid intake Start Vitamin B6 Surveillance imaging PFSH Medical History (Updated 07/06/24 @ 14:52 by Rizwan Robison MD) Kidney stones Lymphoma Social History Household Members: Family Housing: House Patient Tobacco Use Status: Never used Tobacco e-Cigarette/Vaping Use: Never Used Substance Use Type: Marijuana Current occupational status: employed Cognitive needs: No Hearing needs: No Vision needs: Yes Review of Systems Const Denies chills and Denies fever(s) Card Reports no additional complaints and Denies syncope Resp Denies cough GI Denies abdominal pain and Denies heartburn Reports as per HPI and Denies change in libido Neuro Denies syncope Psych Denies change in libido Endo Denies change in libido Physical Exam Const General: cooperative, healthy appearing, comfortable and no acute distress Orientation/consciousness: patient oriented x3 HEENT Face and sinus: Yes normal facial exam Mouth: moist mucous membranes Neck Neck: Yes normal visual inspection, Yes full ROM and Yes trachea midline Chest Chest palpation & inspection: normal inspection of the chest Resp Effort & Inspection: normal respiratory effort, able to speak in complete sentences and no respiratory distress GI Inspection: Yes normal to inspection Back/Spine/Pelvis Cervical Spine: normal cervical lordosis Thoracic/Lumbar Spine: thoracic and lumbar spine normal to inspection Skin General skin exam: no rashes or lesions noted Neuro General: patient oriented x3, gait normal, tone normal and moves all extremities Extrem General: Yes normal to inspection and Yes capillary refill normal Assessment & Plan Assessment & Plan (1) Kidney stones: Code(s): N20.0 - Calculus of kidney Category: Medical Plan Six-month follow-up renal imaging Orders: Orders US renal BI 6 Months N20.0 - Calculus of kidney Medications: New pyridoxine (vitamin B6) 50 mg PO DAILY 90 days 90 tabs 1RF N20.0 - Calculus of kidney Patient Instructions: This note is constructed using voice recognition software. While every effort has been made to ensure accuracy senior mechanical technician errors may have been included. Imaging studies, laboratory and physical exam results were discussed and reviewed in detail. No major barriers to patient understanding were identified. An opportunity to ask questions regarding the treatment plan was provided. All questions were answered. The patient expressed understanding and agreement with the above treatment plan. The patient is aware they should contact our office by phone for worsening of th eir current condition or the appearance of new urologic symptoms. Compliance is encouraged with any medications and followup testing that is ordered. It is a privilege to participate in the urologic care of your patient. If you have any questions or concerns regarding treatment for the above conditions, or other urologic issues, please do not hesitate to contact me. The office telephone contact is [phone]. Sincerely, Dr Rizwan Robison MD, [facility] - Urology Compassionate Specialist Care for the Genitourinary System Coding Level of Care Code New Pt Level 4 (31075) Diagnoses Kidney stones N20.0
--- OUTSIDE RECORDS SUMMARY | 2024-07-06 15:13 | XMS_ITS | Clinical Summary ---
Author Organization [facility] Address [address] [facility] [address] [place] [address] Phone Care Team Providers Care Supervisor Frame Assembly Name Role Phone Lang Aguilera NP Primary Care Provider [phone] Allergies Active Allergy Reactions Criticality Noted Date Comments Crab (Diagnostic) 11/04/2022 Medications cyclobenzaprine (FLEXERIL) 10 MG tablet Take 10 mg by mouth 1 (one) time each day Active Active Problems Problem Noted Date Diagnosed Date Renal calculus 11/04/2022 Other acute kidney failure 11/04/2022 Social History Tobacco Use Types Packs/Day Years Used Date Smoking Tobacco: Never Smokeless Tobacco: Never Tobacco Cessation:Counseling Given: Not Answered Alcohol Use Standard Drinks/Week Comments Yes 0 (1 standard drink = 0.6 oz pur e alcohol) Socially Sex and Gender Information Value Date Recorded Sex Assigned at Not on file Legal Sex Male 9:24 AM EDT Gender Identity Not on file Sexual Orientation Not on file Last Filed Vital Signs Vital Sign Reading Time Taken Comments Blood Pressure 80/60 12/30/2022 3:55 PM EDT Pulse 95 12/30/2022 3:55 PM EDT Temperature - - Respiratory Rate - - Oxygen Saturation 98% 11/04/2022 3:49 PM EDT Inhaled Oxygen Concentration - - Weight 62.5 kg (137 lb 12.8 oz) 12/30/2022 3:55 PM EDT Height 180.3 cm (5' 11 ) 11/04/2022 3:49 PM EDT Body Mass Index 19.22 11/04/2022 3:49 PM EDT Plan of Treatment Health Maintenance Due Date Last Done Comments Pneumococcal Vaccine: Pediat rics (0 to 5 Years) and At-Risk Patients (6 to 64 Years) (1 of 2 - PCV) 12/13/1997 Hepatitis B Vaccine (1 of 3 - 19+ 3-dose series) 12/13 Influenza Vaccine (#1) 2024 Insurance Care Teams Supervisor Frame Assembly Relationship Specialty Start Date End Date Lang Aguilera NP 1960 [place], [place] [id number] PCP - General Nurse Practitioner 12/30/22
== END 2024-07-06 14:55 | disposition home or self-care (01) ==
PROVIDERS: PCP Nurse Practitioner Family; Visit Provider Urology
DX: N20.0 Calculus of kidney (principal)
CPT/HCPCS: 99204

== ENCOUNTER → 2024-07-06 14:11 | Outpatient (BNVA) | payer OTHER, SELFPAY | PROVIDERS: PCP Nurse Practitioner Family; Visit Provider Urology | DX: N20.0 Calculus of kidney (principal) | CPT/HCPCS: 99202 ==

== ENCOUNTER 2024-11-22 14:03 | Outpatient (AMB) | payer OTHER, SELFPAY ==
--- NOTE | 2024-11-22 14:06 | A.OFFPC_ITS ---
Vital Signs 11/22/24 14:08 Height 5 ft 10 in Weight 153 lb BMI 22.0 BP 112/72 Blood Pressure Location Lt brachial Position Sitting Pulse 80 Pulse Source Pulse Oximeter Pulse Oximetry (%) 98 Oxygen Delivery Method Room Air Intake Visit Reasons: Labs results Chemist Water Purification Required: No Accompanied by: Self / Same As Patient Allergies crab Allergy (Verified 11/22/24 14:08) Itching Tobacco use date assessed: 11/22/24 Dental Screening Dental Screen Date: 11/22/24 Did you have a dental visit in the last 12 months?: Yes Did you have a dental problem in the last 6 months where you did not have access to dental care?: No Was dental information given to patient?: Patient has dentist HPI Labs results HPI Details Chief Complaint The patient presents for follow-up care related to Hodgkin's lymphoma and cervical lymphadenopathy. History of Present Illness The patient is a 33-year-old male presenting with a follow-up visit regarding his history of Hodgkin's lymphoma. He reports intermittent cervical lymphadenopathy, with fluctuations in size, noting a recent decrease in size. Palpation revealed small cervical nodes, predominantly on the left side, which were not enlarged. The patient has a history of elevated liver enzymes, specifically ALT, which may be related to dietary changes including increased protein intake and processed foods. An abdominal ultrasound is planned to assess for a possible fatty liver. He also has a history of kidney stones and is advised to follow up with urology. Social History - Nutrition: Increased protein intake an d consumption of processed foods Health Maintenance - Follow-up with hematology oncology for Hodgkin's lymphoma - Follow-up with urology for kidney ston es Review of Systems - Lymphatic: Reports intermittent cervic al lymphadenopathy - Gastrointestinal: Denies costovertebra l angle tenderness, no abdominal tenderness -denies any recent fevers, chills, N/V, abd pain, diarrhea, constipation Physical Exam General: Cooperative, healthy appearing, comfortable, no acute distress and well developed Orientation: Patient oriented x3 Limitations: No limitations Head: Normal to inspection Ears: Hearing grossly normal bilaterally Nose: Normal external nose present Face and sinus: Normal facial exam Eyes: Appearance normal, both eyes and all related structures Neck: no cervical lymphadenopathy noted. palpable nodes bilat, but not enlarged Respiratory: Normal respiratory effort and able to speak in complete sentences. Clear to auscultation bilaterally Cardiovascular: Regular rate and rhythm. Normal S1 and S2 GI: Normal to inspection. Soft to palpation and nontender. No CVA tenderness not ed Skin: No rashes or lesions noted Neuro: Patient oriented x3 Extremities: Normal to inspection Results - Labs: Elevated ALT - Planned: Abdominal ultrasound to asses s for fatty liver Plan The patient is advised to continue follow-up with hematology oncology for monitoring of Hodgkin's lymphoma and associated cervical lymphadenopathy. An abdominal ultrasound is planned to further evaluate elevated liver enzymes and assess for a possible fatty liver, potentially related to dietary habits. The patient is also encouraged to follow up with urology for ongoing management of kidney stones. Discussion Notes I discussed with the patient the importance of continuing follow-up with hematology oncology for his Hodgkin's lymphoma and the need for a neck CT scan in the near future. We also talked about the elevated liver enzymes, likely due to dietary changes, and the plan for an abdominal ultrasound to assess for fatty liver. I encouraged him to maintain follow-up with urology for his kidney stones and advised on the absence of any current CVA tenderness. Patient Instructions - Continue follow-up with hematology onc ology for Hodgkin's lymphoma. - Schedule and complete an abdominal ult rasound to check for fatty liver. - Follow up with urology for kidney ston e management. [facility] Medical History Kidney stones Lymphoma Surgical History No pertinent past surgical history Social History Household Members: Family Housing: House Patient Tobacco Use Status: Never used Tobacco e-Cigarette/Vaping Use: Never Used Substance Use Type: Marijuana Current occupational status: employed Cognitive needs: No Hearing needs: No Vision needs: Yes Questionnaire PHQ-9 Over the last 2 weeks, how often have you been bothered by any of the following problems? 1. Little interest or pleasure in doing things: not at all 2. Feeling down, depressed, or hopeless: not at all 3. Trouble falling or staying asleep, or sleeping too much: not at all 4. Feeling tired or having little energy: not at all 5. Poor appetite or overeating: not at all 6. Feeling bad about yourself - or that you are a failure or have let yourself or your family down: not at all 7. Trouble concentrating on things, such as reading the newspaper or watching television: not at all 8. Moving or speaking so slowly that other people could have noticed. Or the opposite - being so fidgety or restless that you have been moving around a lot more than usual: not at all 9. Thoughts that you would be better off or of hurting yourself in some way: not at all Total score: 0 Depression Screening Interpretation: Negative Depression Screening Done: Yes 71072 - PHQ-9 Billing: Yes Source: Developed by Drs. Tony Dave, Rena Guevara, Chicho Scherer and colleagues, with an educational annie from [employer]. Thrive Questionnaire Date Thrive assessed: 11/22/24 I am a: Patient What is your living situation today?: I have a steady place to live Within the past 12 months, did the food you bought not last and you didn't have the money to get more?: Never true Within the past 12 months, did you worry whether your food would run out before you got money to buy more?: Never true Do you have trouble paying for medicines?: No Do you have trouble getting transportation to medical appointments?: No Do you have trouble paying your heating and electricity bill?: No Do you have trouble taking care of your child, family member or friend?: No Do you have trouble with day-to-day activities such as bathing, preparing meals, shopping, managing finances, etc.?: No Are you currently unemployed and looking for a job?: No Are you interested in more education?: Yes Please select the resources that you would like help with: None Currently or been in a relationship where the following occur: No concerns reported THRIVE Score: 0 AUDIT C Alcohol Use Questionnaire (AUDIT-C) 1. How often do you have a drink containing alcohol?: Monthly or less 2. How many drinks containing alcohol do you have on a typical day when you are drinking?: 3 or 4 3. How often do you have six or more drinks on one occasion?: Never Total Score: 2 Score Reviewed/Action Taken: Yes SARAH-7 AMB Questionnaire SARAH-7 Date SARAH - 7 assessed: 11/22/24 Feeling nervous, anxious, or on edge: 0 = Not at all Not being able to stop or control worryin = Not at all Worrying too much about different things: 0 = Not at all Trouble relaxin = Not at all Being so restless that it is hard to sit still: 0 = Not at all Becoming easily annoyed or irritable: 0 = Not at all Feeling afraid as if something awful might happen: 0 = Not at all Total SARAH-7 score (0-4 normal; 5-9 mild; 10-14 moderate; 15-21 severe): 0 Source: Developed by Drs. Tony Dave, Rena Guevara, Chicho Scherer and colleagues, with an educational annie from [employer]. SARAH-7 Assessment Billing SARAH-7 Assessment Tool: SARAH-7 Assessment 60146 Physical exam (Primary Care) Vital Signs: Last Vital Signs Pulse 80 11/22/24 14:08 BP 112/72 11/22/24 14:08 Pulse Ox 98 11/22/24 14:08 Oxygen Delivery Method Room Air 11/22/24 14:08 BMI result Body Mass Index 22.0 Tobacco/Smoking Status: Tobacco use Status Tobacco use date assessed 11/22/24 11/22/24 14:09 Patient Tobacco Use Status Never used Tobacco 11/22/24 14:09 e-Cigarette/Vaping Use Never Used 11/22/24 14:09 PHQ-9: PHQ-9 Score PHQ-9: Total score 0 11/22/24 14:14 Depression Screening Interpretation: Negative Thrive Assessment: Date of Thrive Assessment Date Thrive assessed 11/22/24 11/22/24 14:11 Currently or been in a relationship where the following occur: No concerns reported Coding Level of Care Code Est Pt Level 3 (78341) Diagnoses Elevated liver enzymes R74.8 Lymphoma C85.90 Kidney stones N20.0 Additional Codes SARAH-7 Assessment Billing - SARAH-7 Assessment Tool: SARAH-7 Assessment 55851 ([id number]) PHQ-9 - 34357 - PHQ-9 Billing: Yes ([id number]) Assessment & Plan Assessment & Plan (1) Elevated liver enzymes: Code(s): R74.8 - Abnormal levels of other serum enzymes Category: Medical (2) Lymphoma: Code(s): C85.90 - Non-Hodgkin lymphoma, unspecified, unspecified site Category: Medical (3) Kidney stones: Code(s): N20.0 - Calculus of kidney Category: Medical Plan . Orders: Orders US abdomen complete Today R74.8 - Abnormal levels of other serum enzymes
[2024-11-22 14:08] VITALS: BP 112/72; PULSE 80; O2SAT 98; BMI 22.0
--- OUTSIDE RECORDS SUMMARY | 2024-11-22 14:32 | XMS_ITS | Clinical Summary ---
Author Organization [facility] Address [address] [facility] [address] [place] [address] Phone Care Team Providers Care Window Glazier Helper Name Role Phone Lang Aguilera NP Primary Care Provider [phone] Allergies Active Allergy Reactions Criticality Noted Date [...] Health Maintenance Due Date Last Done Comments Hepatitis B Vaccine (1 of 3 - 19+ 3-dose series) 12/13 Pneumococcal Vaccine: Peds ( 0 to 5 Years) and At-Risk Patients (6 to 49 Years) (1 of 2 - PCV) 12/13/2010 Influenza Vaccine (Season Ended) 2025 Insurance Care Teams Window Glazier Helper Relationship Specialty Start Date End Date Lang Aguilera NP [address] [place], [place] [id number] PCP - General Nurse Practitioner 12/30/22
== END 2024-11-22 15:31 | disposition home or self-care (01) ==
LOC: HO.HMCC 14:04
PROVIDERS: PCP Nurse Practitioner Family; Visit Provider Nurse Practitioner Family
DX: R74.8 Abnormal levels of other serum enzymes (principal); C85.90 Non-Hodgkin lymphoma, unspecified, unspecified site; N20.0 Calculus of kidney

== ENCOUNTER → 2024-11-22 14:03 | Outpatient (BNVA) | payer OTHER, SELFPAY | PROVIDERS: PCP Nurse Practitioner Family; Visit Provider Nurse Practitioner Family | DX: N20.0 Calculus of kidney (principal); C85.90 Non-Hodgkin lymphoma, unspecified, unspecified site; R74.8 Abnormal levels of other serum enzymes | CPT/HCPCS: 96127; 99212 ==

== ENCOUNTER 2024-11-26 14:12 | Outpatient (REF) | payer OTHER, SELFPAY ==
--- NOTE | ~2024-11-26 | CT_ITS ---
EXAMINATION: CT SOFT TISSUE NECK WITH CONTRAST CLINICAL INFORMATION: Swollen right neck lymphadenopathy . COMPARISON: None available. TECHNIQUE: Following the intravenous administration of 70 mL of Omnipaque 350 intravenous contrast, helical imaging was performed in the axial plane with generation of coronal and sagittal reformatted images. This CT examination was performed using dose optimization techniques as appropriate, variously including the following: *Automated exposure control *Adjustment of mA and/or kV according to patient size (this includes techniques or standardized protocols for targeted exams where dose is matched to indication/reason for exam; i.e. extremities or head) *Use of iterative reconstruction technique FINDINGS: Lymph Nodes: -Normal. No abnormal lymph nodes identified in the anterior or posterior cervical chains. Carotid Sheath Structures: -Normal. Salivary Glands: -Normal. Tongue Base/Floor of Mouth: -Normal Mucosal Space: -Normal. No lesion. -Normal epiglottis and aryepiglottic folds. Visceral Space: -Thyroid gland: 3 tiny subcentimeter hypoattenuating foci present, measuring up to 7 mm. No significant nodules. No follow-up recommended. -The larynx and true vocal cords appears normal. -The cervical esophagus appears normal. -The subglottic trachea appears normal. Retropharangeal Space: -Normal. Parapharyngeal Fat Planes: -Normal. Classics Teacher Spaces: -Normal. Anterior Cervical Space: -Normal. Imaged Intracranial Contents: -No mass effect, edema, or abnormal enhancement. Cortical and dural venous sinuses are patent. The skull base is normal. Globes and Orbits: -Normal. Paranasal Sinuses/Mastoids/Tympanic Spaces: -Normally aerated bilaterally. Lung Apices and Superior Mediastinal Structures: -Imaged lung apices are clear and superior mediastinal structures are normal. Bony Structures: -No suspicious bone lesions. No fractures. -Normal TM joints. CT/CT soft tissue neck w IV con IMPRESSION: 1. No mass or abnormal lymphadenopathy within the neck. No acute findings. 2. There are 3 nodules in the thyroid, largest measuring up to 7 mm. These are too small to recommend follow-up. Electronically signed by: Jah Kelly MD 11/26/2024 02:57 PM EDT
--- OUTSIDE RECORDS SUMMARY | 2024-11-26 14:14 | XMS_ITS | Clinical Summary ---
Author Organization [facility] Address [address] [facility] [address] [place] [address] Phone Care Team Providers Care Produce Assistant Name Role Phone Lang Aguilera NP Primary Care Provider [phone] Allergies Active Allergy Reactions Criticality Noted Date [...] of 2 - PCV) 12/13/2010 Influenza Vaccine (#1) 2025 Insurance Care Teams Produce Assistant Relationship Specialty Start Date End Date Lang Aguilera NP [address] [place], [place] [id number] PCP - General Nurse Practitioner 12/30/22
[2024-11-26] MEDS: iohexoL 350 MG/ML 100 ML INFUS..BTL IV (14:35)
== END 2024-11-26 14:13 | disposition home or self-care (01) ==
LOC: HO.CT 14:12
PROVIDERS: PCP Nurse Practitioner Family; Visit Provider Internal Medicine
DX: C85.90 Non-Hodgkin lymphoma, unspecified, unspecified site (principal)
CPT/HCPCS: 70491; Q9967

== ENCOUNTER → 2024-11-26 14:14 | Outpatient (BNV) | payer OTHER, SELFPAY | PROVIDERS: PCP Nurse Practitioner Family; Visit Provider Radiology Diagnostic Radiology | DX: E04.2 Nontoxic multinodular goiter (principal) | CPT/HCPCS: 70491 ==

== ENCOUNTER 2024-12-27 09:52 | Outpatient (REF) | payer OTHER, SELFPAY ==
--- NOTE | ~2024-12-27 | US_ITS ---
CLINICAL HISTORY: N20.0 - Calculus of kidney US RENAL Comparison: None provided Findings: Right kidney length is 10.4 cm. Normal cortical thickness and echotexture. No hydronephrosis. 9.5 mm cyst in the upper pole. 2.6 mm calculus in the upper pole. Left kidney length is 10.0 cm. Normal cortical thickness and echotexture. No hydronephrosis. 6.0 mm cyst in the upper pole. No definite calculus. IMPRESSION: 1. No hydronephrosis. 2. Nonobstructing right nephrolithiasis. 3. Tiny bilateral renal cysts. This document has been electronically signed by: Angeli Marquez DO on 12/27/2024 16:40:18
--- OUTSIDE RECORDS SUMMARY | 2024-12-27 10:25 | XMS_ITS | Clinical Summary ---
Author Organization [facility] Address [address] [facility] [address] [address] [place] [address] Phone Care Team Providers Care Licensing Specialist Name Role Phone Lang Aguilera NP Primary Care Provider [phone] Allergies Active Allergy Reactions Criticality Noted Date [...] Influenza Vaccine (#1) 2025 Insurance Care Teams Licensing Specialist Relationship Specialty Start Date End Date Lang Aguilera NP [address] [place], [place] [phone] PCP - General Nurse Practitioner 12/30/22
== END 2024-12-27 09:53 | disposition home or self-care (01) ==
LOC: HO.US 09:52
PROVIDERS: PCP Nurse Practitioner Family; Visit Provider Urology
DX: N20.0 Calculus of kidney (principal)
CPT/HCPCS: 76775

== ENCOUNTER → 2024-12-27 09:56 | Outpatient (BNV) | payer OTHER, SELFPAY | PROVIDERS: PCP Nurse Practitioner Family; Visit Provider Radiology Diagnostic Radiology | DX: N20.0 Calculus of kidney (principal) | CPT/HCPCS: 76775 ==

== ENCOUNTER 2025-01-03 14:30 | Outpatient (AMB) | payer OTHER, SELFPAY ==
--- NOTE | 2025-01-03 14:30 | A.OFFVIS_ITS ---
Intake Visit Reasons: 6m follow up/ US Intake Note: PT PRESENTS FOR: 6MO FOLLOW UP UROLOGY MEDICATIONS: NONE BLOOD THINNERS: NONE IMAGING DONE: 12/27/24 Garment Tag Stringer Required: No Accompanied by: Self / Same As Patient Allergies crab Allergy (Verified 01/03/25 15:02) Itching Medication List - Last Reconciled 01/03/25 by SHARON Kennedy pyridoxine (vitamin B6) 100 mg PO DAILY 90 days HPI Comments Details: Gilmar is a very pleasant 34-year-old male patient of Dr. Sheehan. He has a past medical history of lymphoma nephrolithiasis. In discussion with the patient today reports to be doing and feeling well. He denies having had any bothersome urinary issues or concerns since his last office visit here. Recent renal imaging results were reviewed 01/10 bilateral kidneys are normal in cortical thickness and echotexture. No hydronephrosis noted bilaterally. 2.6 mm calculus in the upper pole. Tiny bilateral renal cysts. In office urinalysis results reviewed with the patient today. When asked he denies urinary urgency, urinary frequency, incontinence, nocturia, hematuria, dysuria, foul smelling urine, changes to urinary stream, flank pain, fever, and or chills. He is happy with his current voiding parameters. We discussed potential causes of nephrolithiasis as well as importance of adequate hydration relation to nephrolithiasis as well as overall health and well-being. We also discussed adding 1 oz of lemon juice to water daily. He denies any previous surgical history of nephrolithiasis. All questions were answered. He otherwise offers no other issues or concerns at this time. [facility], [facility] Medical History Kidney stones Lymphoma Surgical History No pertinent past surgical history Social History Household Members: Family Housing: House Patient Tobacco Use Status: Never used Tobacco e-Cigarette/Vaping Use: Never Used Substance Use Type: Marijuana Current occupational status: employed Cognitive needs: No Hearing needs: No Vision needs: Yes Review of Systems Const All systems reviewed & are unremarkable except as noted in HPI and below Physical Exam Const General: cooperative, healthy appearing, comfortable, no acute distress, well developed, alert and awake Orientation/consciousness: patient oriented x3 Limitations: no limitations HEENT Head: Yes normal to inspection, Yes normocephalic and Yes atraumatic Ears: hearing grossly normal bilaterally Eyes General: appearance normal, both eyes and all related structures Neck Neck: Yes normal visual inspection and Yes trachea midline Chest Chest palpation & inspection: normal inspection of the chest Resp Effort & Inspection: normal respiratory effort and able to speak in complete sentences Cardio Rate: regular rate GI Inspection: Yes normal to inspection General: Yes no CVA tenderness Back/Spine/Pelvis Back: no CVA tenderness Skin General skin exam: no rashes or lesions noted Neuro General: patient oriented x3 Extrem General: Yes normal to inspection Psych Appearance: grossly normal and well kempt Mental Status: mental status grossly normal Speech and movement: Normal speech and movement present and Clear speech present Affect: normal affect Attitude: cooperative Thought process: Normal thought process present Thought content: Normal thought content present Insight: Fair insight present (Psych) Judgement: Fair judgement present (Psych) Results AMB Urinalysis, Automated UA Leukoctes 0 Kathrin/uL Last Edit by CHRISTY Merritt on 01/03/25 14:40 UA Nitrite Negative Last Edit by CHRISTY Merritt on 01/03/25 14:40 UA Urobilinogen 3.5 mg/dL Last Edit by CHRISTY Merritt on 01/03/25 14:4 0 UA Protein 15 mg/dL Last Edit by CHRISTY Merritt on 01/03/25 14:40 UA pH 6.0 Last Edit by CHRISTY Merritt on 01/03/25 14:40 UA Blood 10 Valentin/uL Last Edit by CHRISTY Merritt on 01/03/25 14:40 UA Specific Lucile 1.025 Last Edit by CHRISTY Merritt on 01/03/25 14: 40 UA Ketone Negative Last Edit by CHRISTY Merritt on 01/03/25 14:40 UA Bilirubin 0 mg/dL Last Edit by CHRISTY Merritt on 01/03/25 14:40 UA Glucose 0 mg/dL Last Edit by CHRISTY Merritt on 01/03/25 14:40 Results Reviewed Results Reviewed: Laboratory Last Values Urine pH (Auto) 6.0 01/03/25 14:40 Specific Lucile (Auto) 1.025 01/03/25 14:40 Urine Protein (Auto) 15 mg/dL 01/03/25 14:40 Glucose (UA)(Auto) 0 mg/dL 01/03/25 14:40 Urine Ketones (Auto) Negative 01/03/25 14:40 Urine Blood (Auto) 10 Valentin/uL 01/03/25 14:40 Urine Nitrite (Auto) Negative 01/03/25 14:40 Urine Bilirubin (Auto) 0 mg/dL 01/03/25 14:40 Urine Urobilinogen (Auto) 3.5 mg/dL 01/03/25 14:40 Leukocyte Esterase (Auto) 0 Kathrin/uL 01/03/25 14:40 Date of Service: 12/27/24 Procedure(s): US renal BI US RENAL Comparison: None provided Findings: Right kidney length is 10.4 cm. Normal cortical thickness and echotexture. No hydronephrosis. 9.5 mm cyst in the upper pole. 2.6 mm calculus in the upper pole. Left kidney length is 10.0 cm. Normal cortical thickness and echotexture. No hydronephrosis. 6.0 mm cyst in the upper pole. No definite calculus. IMPRESSION: 1. No hydronephrosis. 2. Nonobstructing right nephrolithiasis. 3. Tiny bilateral renal cysts. Assessment & Plan Assessment & Plan (1) Kidney stones: Code(s): N20.0 - Calculus of kidney Category: Medical (2) Renal cyst: Code(s): N28.1 - Cyst of kidney, acquired Category: Medical Plan In office urinalysis results reviewed with the patient today; as noted above. Recent renal imaging results reviewed with the patient today; as noted above. We discussed importance of adequate hydration relation to nephrolithiasis as well as overall health and well-being. We discussed adding 1 oz of lemon juice to water daily. Will continue with surveillance monitoring. Will obtain renal ultrasound in 6 months. Start vitamin B6 as discussed and prescribed Follow-up in 6 months with imaging; or sooner with any issues, concerns, and or questions. Orders: Orders AMB Urinalysis Automated Today Z13.9 - Encounter for screening, unspecified US renal BI 6 Months N20.0 - Calculus of kidney Medications: New pyridoxine (vitamin B6) 100 mg PO DAILY 90 tabs 1RF 90 days Patient Instructions: The patient had an opportunity to ask questions regarding the treatment plan. All questions were answered. Physical exam, labs, and imaging were discussed and reviewed in detail. As well as risks, benefits, and discussion of treatment choices. No major barriers to understanding were identified. The patient expressed understanding and agreement with the above treatment plan. The patient was made aware they should contact our office by phone for worsening of their current condition, the appearance of new symptoms, or with any questions or concerns. Compliance is encouraged with any medications and follow up testing that is ordered. It is a privilege to be allowed the opportunity to participate in? your urological care.? Again, if you have any questions or concerns If you have any questions or concerns please do not hesitate to contact me. The office is [phone]. This note is constructed using voice recognition software. While every effort has been made to ensure accuracy contracting executive errors may have been included. Yours sincerely, SHARON Kennedy Coding Level of Care Code Est Pt Level 4 (69964) Diagnoses Kidney stones N20.0 Renal cyst N28.1
--- OUTSIDE RECORDS SUMMARY | 2025-01-03 15:13 | XMS_ITS | Clinical Summary ---
Author Organization [facility] Address [address] [facility] [address] [place] [address] Phone Care Team Providers Care Cyber Software Engineer Name Role Phone Lang Aguilera NP Primary Care Provider [phone] Allergies Active Allergy Reactions Criticality Noted Date [...] Influenza Vaccine (#1) 2025 Insurance Care Teams Cyber Software Engineer Relationship Specialty Start Date End Date Lang Aguilera NP [address] [place], [place] [id number] PCP - General Nurse Practitioner 12/30/22
== END 2025-01-03 15:18 | disposition home or self-care (01) ==
LOC: HO.HUSH 14:30
PROVIDERS: PCP Nurse Practitioner Family; Visit Provider Nurse Practitioner Family
DX: N20.0 Calculus of kidney (principal); N28.1 Cyst of kidney, acquired; Z13.9 Encounter for screening, unspecified
CPT/HCPCS: 99214

== ENCOUNTER → 2025-01-03 14:30 | Outpatient (BNVA) | payer OTHER, SELFPAY | PROVIDERS: PCP Nurse Practitioner Family; Visit Provider Nurse Practitioner Family | DX: N20.0 Calculus of kidney (principal); N28.1 Cyst of kidney, acquired | CPT/HCPCS: 81003; 99212 ==

== ENCOUNTER 2025-01-06 10:17 | Outpatient (REF) | payer OTHER, SELFPAY ==
--- NOTE | ~2025-01-06 | US_ITS ---
CLINICAL HISTORY: R74.8 - Abnormal levels of other serum enzymes US abdomen complete Comparison: CT/SR - CT ABDOMEN PELVIS W IV CON - 06/12/24 10:55 EST Findings: The visualized pancreas is normal. The aorta and inferior vena cava are normal caliber. The liver is normal in size and echotexture. There is no intrahepatic bile duct dilatation. The common duct is 2 mm in diameter. The gallbladder is normal. There is no sonographic Mcnally sign. The main portal vein is antegrade. The right kidney is 10.6 cm in length. Upper pole cyst measuring up to 5 mm. The left kidney is 11.1 cm in length. Numerous echogenic foci without shadowing or twinkle artifact. These could be punctate stones. The spleen is normal. No ascites. IMPRESSION: 1. No acute findings. Numerous punctate echogenic foci in the left kidney may be small stones. No hydronephrosis. This document has been electronically signed by: Wanda Wren MD on 01/07/2025 16:41:43
--- OUTSIDE RECORDS SUMMARY | 2025-01-06 11:46 | XMS_ITS | Clinical Summary ---
Author Organization [facility] Address [address] [facility] [address] [address] [place] [address] Phone Care Team Providers Care Spa Associate Name Role Phone Lang Aguilera NP Primary Care Provider [phone] Allergies Active Allergy Reactions Criticality Noted Date [...] Influenza Vaccine (#1) 2025 Insurance Care Teams Spa Associate Relationship Specialty Start Date End Date Lang Aguilera NP [address] [place], [place] [id number] PCP - General Nurse Practitioner 12/30/22
== END 2025-01-06 10:18 | disposition home or self-care (01) ==
LOC: HO.US 10:17
PROVIDERS: PCP Nurse Practitioner Family; Visit Provider Nurse Practitioner Family
DX: R74.8 Abnormal levels of other serum enzymes (principal)
CPT/HCPCS: 76700

== ENCOUNTER → 2025-01-06 10:20 | Outpatient (BNV) | payer OTHER, SELFPAY | PROVIDERS: PCP Nurse Practitioner Family; Visit Provider Radiology Diagnostic Radiology | DX: R74.8 Abnormal levels of other serum enzymes (principal) | CPT/HCPCS: 76700 ==

== ENCOUNTER 2025-03-28 08:12 | Outpatient (AMB) | payer OTHER, SELFPAY ==
--- NOTE | 2025-03-28 08:19 | A.OFFPC_ITS ---
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 Accompanied by: Self / Same As Patient Allergies crab Allergy (Verified 01/03/25 15:02) Itching Medication List - Last Reconciled 03/28/25 by SEVERO Wilson- pyridoxine (vitamin B6) 100 mg PO DAILY 90 days Tobacco use date assessed: 03/28/25 Dental Screening Dental Screen Date: 03/28/25 Did you have a dental visit in the last 12 months?: Yes Did you have a dental problem in the last 6 months where you did not have access to dental care?: No Was dental information given to patient?: Patient has dentist HPI Annual PE HPI Details History of Present Illness The patient is a 34-year-old male presenting for a physical exam. He reports feeling well overall and has not seen any specialists recently. Health Maintenance - The patient presented for a physical e xamination. - Laboratory studies will be ordered. Social History Review of Systems - Constitutional: Reports feeling well. - Cardiovascular: Denies chest pain. - Respiratory: Denies dyspnea. - Gastrointestinal: Denies abdominal guido n, hematochezia, constipation, or diarrhea. - Psychiatric: Denies suicidal or homici ro ideation. Physical Exam General: Cooperative, healthy appearing, comfortable, no acute distress and well developed Orientation: Patient oriented x3 Limitations: No limitations Head: Normal to inspection Ears: Hearing grossly normal bilaterally Nose: Normal external nose present Face and sinus: Normal facial exam Eyes: Appearance normal, both eyes and all related structures Neck: Normal visual inspection and Yes full ROM Respiratory: Normal respiratory effort and able to speak in complete sentences. Clear to auscultation bilaterally Cardiovascular: Regular rate and rhythm. Normal S1 and S2 GI: Normal to inspection. Soft to palpation and nontender : testicles without masses/lesions and no hernias appreciated Skin: No rashes or lesions noted Neuro: Patient oriented x3 Extremities: Normal to inspection Results Plan 1. Encounter For General Adult Medical E xamination The patient presented for a routine physical examination. The physical exam was benign. Labs will be ordered for further evaluation. Discussion Notes I informed the patient that his physical exam was completely benign. I also advised him that I will be ordering labs for him to complete in the near future. Patient Instructions - You will need to get lab work done in the near future. [facility] Medical History Kidney stones Lymphoma Surgical History No pertinent past surgical history Social History Household Members: Family Housing: House Patient Tobacco Use Status: Never used Tobacco e-Cigarette/Vaping Use: Never Used Substance Use Type: Marijuana Current occupational status: employed Cognitive needs: No Hearing needs: No Vision needs: Yes Questionnaire PHQ-9 Over the last 2 weeks, how often have you been bothered by any of the following problems? 1. Little interest or pleasure in doing things: not at all 2. Feeling down, depressed, or hopeless: not at all 4. Feeling tired or having little energy: not at all 5. Poor appetite or overeating: not at all 6. Feeling bad about yourself - or that you are a failure or have let yourself or your family down: not at all 7. Trouble concentrating on things, such as reading the newspaper or watching television: not at all 8. Moving or speaking so slowly that other people could have noticed. Or the opposite - being so fidgety or restless that you have been moving around a lot more than usual: not at all 9. Thoughts that you would be better off or of hurting yourself in some way: not at all Depression Screening Interpretation: Negative Depression Screening Done: Yes 66626 - PHQ-9 Billing: Yes Source: Developed by Drs. Tony Dave, Rena Guevara, Chicho Scherer and colleagues, with an educational annie from [employer]. Thrive Questionnaire Date Thrive assessed: 11/22/24 I am a: Patient What is your living situation today?: I have a steady place to live Within the past 12 months, did the food you bought not last and you didn't have the money to get more?: Never true Within the past 12 months, did you worry whether your food would run out before you got money to buy more?: Never true Do you have trouble paying for medicines?: No Do you have trouble getting transportation to medical appointments?: No Do you have trouble paying your heating and electricity bill?: No Do you have trouble taking care of your child, family member or friend?: No Do you have trouble with day-to-day activities such as bathing, preparing meals, shopping, managing finances, etc.?: No Are you currently unemployed and looking for a job?: No Are you interested in more education?: Yes Please select the resources that you would like help with: None Currently or been in a relationship where the following occur: No concerns reported THRIVE Score: 0 SARAH-7 AMB Questionnaire SARAH-7 Date SARAH - 7 assessed: 03/28/25 Feeling nervous, anxious, or on edge: 0 = Not at all Not being able to stop or control worryin = Not at all Worrying too much about different things: 0 = Not at all Trouble relaxin = Not at all Becoming easily annoyed or irritable: 0 = Not at all Feeling afraid as if something awful might happen: 0 = Not at all Source: Developed by Drs. Tony Dave, Rena Guevara, Chicho Scherer and colleagues, with an educational annie from [employer]. SARAH-7 Assessment Billing SARAH-7 Assessment Tool: SARAH-7 Assessment 37839 Physical exam (Primary Care) Vital Signs: Last Vital Signs Temp 98.3 F 03/28/25 08:23 Pulse 92 03/28/25 08:23 Resp 16 03/28/25 08:23 BP 112/76 03/28/25 08:23 Pulse Ox 97 03/28/25 08:23 Oxygen Delivery Method Room Air 03/28/25 08:23 BMI result Body Mass Index 22.7 Tobacco/Smoking Status: Tobacco use Status Tobacco use date assessed 03/28/25 03/28/25 08:27 Patient Tobacco Use Status Never used Tobacco 03/28/25 08:20 e-Cigarette/Vaping Use Never Used 03/28/25 08:20 Depression Screening Interpretation: Negative Thrive Assessment: Date of Thrive Assessment Date Thrive assessed 11/22/24 03/28/25 08:20 Currently or been in a relationship where the following occur: No concerns reported Coding Level of Care Code Est Pt Prev Care 18-39y(82983) Diagnoses Physical exam Z00.00 Additional Codes SARAH-7 Assessment Billing - SARAH-7 Assessment Tool: SARAH-7 Assessment 08156 ([id number]) PHQ-9 - 79978 - PHQ-9 Billing: Yes ([id number]) Assessment & Plan Assessment & Plan (1) Physical exam: Code(s): Z00.00 - Encounter for general adult medical examination without abnormal findings Category: Medical Plan . Orders: Orders UA CC w/rflx Micro + Cult Today Z00.00 - Encounter for general adult medical examination without abnormal findings Complete Blood Count Auto Diff Today Z00.00 - Encounter for general adult medical examination without abnormal findings Comprehensive [place]. Panel Fast Today Z00.00 - Encounter for general adult medical examination without abnormal findings TSH reflex Free T4 Today Z00.00 - Encounter for general adult medical examination without abnormal findings Lipid Panel Today Z00.00 - Encounter for general adult medical examination without abnormal findings
[2025-03-28 08:23] VITALS: BP 112/76; PULSE 92; RESP 16; TEMP 36.8; O2SAT 97; BMI 22.7
--- OUTSIDE RECORDS SUMMARY | 2025-03-28 08:35 | XMS_ITS | Clinical Summary ---
Author Organization [facility] Address [address] [place] [address] Phone Care Team Providers Care Public Records Officer Name Role Phone Lang Aguilera NP Primary Care Provider [phone] Allergies Active Allergy Reactions Criticality Noted Date [...] Influenza Vaccine (#1) 2025 Insurance Care Teams Public Records Officer Relationship Specialty Start Date End Date Lang Aguilera NP [address] [place], [place] [id number] PCP - General Nurse Practitioner 12/30/22
== END 2025-03-28 08:37 | disposition home or self-care (01) ==
LOC: HO.HMCC 08:13
PROVIDERS: PCP Nurse Practitioner Family; Visit Provider Nurse Practitioner Family
DX: Z00.00 Encounter for general adult medical examination without abnormal findings (principal)

== ENCOUNTER → 2025-03-28 08:12 | Outpatient (BNVA) | payer OTHER, SELFPAY | PROVIDERS: PCP Nurse Practitioner Family; Visit Provider Nurse Practitioner Family | DX: Z00.00 Encounter for general adult medical examination without abnormal findings (principal) | CPT/HCPCS: 96127; 99395 ==